=== PATIENT | male | born 1995 | race Caucasian/White ===

== ENCOUNTER 2024-09-28 13:44 | Emergency (ER) | payer OTHER, SELFPAY ==
[2024-09-28 13:56] VITALS: BP 149/82
[2024-09-28 14:22] VITALS: BP 131/92
--- NOTE | 2024-09-28 15:07 | ED.GENMED ---
History of Present Illness
General
Chief Complaint: Rabies
Source: patient
Exam Limitations: none
Time Seen by Provider: 09/28/24 14:54
Nursing documentation reviewed up to this point in time: agreed with
History of Present Illness
History of Present Illness:
Patient found a bat in his bedroom this AM when he woke. No visible bite carmen. He cam [facility] for rabies booster. 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
Past History
Past History
ED Past Medical History: None
Review of Systems
Review of Systems
Allergies reviewed?: Yes
All Other Systems: ROS reviewed and negative except as documented in HPI and ROS
Constitutional: Reports no symptoms
EENT: Reports no symptoms
Respiratory: Reports no symptoms
Cardiac: Reports no symptoms
ABD/GI: Reports no symptoms
: Reports no symptoms
Musculoskeletal: Reports no symptoms
Skin: Reports no symptoms
Neurological: Reports no symptoms
Psychiatric: Reports no symptoms
Phy Exam
General Physical Exam
General Presentation: well appearing and no apparent distress
General age: appears stated age
General Skin: warm and dry
General Habitus: normal
General Mental: alert
Musculoskeletal Exam
Musculoskeletal Exam: full ROM
Skin Exam
Skin Exam: normal color, warm/dry and no rash
Psychiatric Exam
Psychiatric Exam: normal mood/affect
Course
Orders/Labs/Results
Orders:
Orders
09/28/24 15:02
Rabies Vaccine (Pcec)/Pf [Rabavert Rabies Vacc W-Diluent] 2.5 unit IM .ONCE ONE
Vital Signs
Initial and Last Documented VS:
Initial Vital Signs
Temp Pulse Resp BP Pulse Ox
97.6 F 88 15 149/82 98
09/28/24 13:56 09/28/24 13:56 09/28/24 13:56 09/28/24 13:56 09/28/24 13:56
Last Documented Vital Signs
Temp Pulse Resp BP Pulse Ox
97.6 F 85 16 131/92 98
09/28/24 13:56 09/28/24 14:22 09/28/24 14:22 09/28/24 14:22 09/28/24 14:22
*Critical Care Note
Total Time (30-74mins, 75-104mins- exclusive of procedures): Not Applicable
ED Attending Note
-
Portions of this chart may have been created with voice recognition software.� Occasional wrong word or��sound alike� substitutions may have occurred due to the inherent limitations of voice recognition software.
Discharge Plan
Departure
Patient Disposition: Home (Routine Discharge)
Date of Disposition: 09/28/24
Time of Disposition: 15:04
Patient with high blood pressure during this ER visit?: No
Condition: Good
Covid-19: Not Applicable
Discharge Problem:
Need for post exposure prophylaxis for rabies
Instructions: Rabies Vaccine
Prescriptions:
New
RabAvert (PF) 2.5 unit Suspension For Reconstitution
1 ml IM . DIRECTED Qty: 1 0RF
Rx Instructions:
See Rabies Vaccine Post Exposure Prophylaxis Instruction Sheet for Dosing Instructions
No Action
levofloxacin 500 MG tablet
500 mg PO DAILY Qty: 10 0RF
Referrals:
Roshan Villareal MD [Family Provider, Internal Medicine]
Stand Alone Forms: Rabies Vaccine Post Exp Dosing
Activity Restrictions/Additional Instructions:
Follow up at the infusion center on 10/06 for 2nd booster.
Interventions
Interventions:
*Risk Screen - Suicide Last Done: 09/28/24 14:20
*General Assessment Last Done: 09/28/24 14:20
*Neglect/Abuse Screening Last Done: 09/28/24 13:56
*ED- Fall Risk Assessment Last Done: 09/28/24 14:20
*ED COVID-19 Vaccine History Last Done: 09/28/24 14:20
Discharge Date and Time
Print Language: MONGOLIAN
[2024-09-28] MEDS: RABAVERT RABIES VACC W-DILUENT 2.5 UNIT IM (15:51)
== END 2024-09-28 16:28 | disposition home or self-care (01) ==
LOC: EMR 13:44
PROVIDERS: EMERGENCY PHYSICIAN Emergency Medicine; FAMILY PHYSICIAN Internal Medicine
DX: Z20.3 Contact with and (suspected) exposure to rabies (principal); Z23 Encounter for immunization
CPT/HCPCS: 99282; 90471; 90675

== ENCOUNTER 2024-10-01 10:46 | Outpatient (RCR) | payer OTHER, SELFPAY ==
[2024-10-01 10:50] VITALS: BP 153/88
[2024-10-01] MEDS: RABAVERT RABIES VACC W-DILUENT 2.5 UNIT IM (11:03)
== END 2024-10-02 08:49 | disposition home or self-care (01) ==
LOC: OID 10:46
PROVIDERS: ATTENDING PHYSICIAN Emergency Medicine; FAMILY PHYSICIAN Internal Medicine
DX: Z20.3 Contact with and (suspected) exposure to rabies (principal); Z23 Encounter for immunization
CPT/HCPCS: 90471; 90675

== ENCOUNTER 2024-12-19 23:32 | Emergency (ER) | payer OTHER, SELFPAY ==
[2024-12-19 23:54] VITALS: BP 134/94
[2024-12-20 00:38] LABS: Hematocrit 39.0 % (39.0-52.0); Hemoglobin 13.7 g/dL (13.0-18.0); Mean Corp Hgb Conc. 35.1 g/dL (33.0-37.0); Mean Corpuscular Volume 84.1 fL (80.0-94.0); Nucleated Red Blood Cells % 0 % (-); Platelet Count 285 10^3/uL (130-400); Red Cell Dist. Width 12.5 % (11.5-14.5)
[2024-12-20 00:41] LABS: ALT (SGPT) 23 U/L (0-50); AST (SGOT) 19 U/L (17-59); Albumin 4.6 g/dl (3.5-5.0); Alkaline Phosphatase 39 U/L (38-126); Blood Urea Nitrogen 19 mg/dl (9-20); Calcium 9.5 mg/dl (8.4-10.2); Carbon Dioxide 23 mmol/L (22-30); Chloride 107 mmol/L (98-107); Glucose 147 mg/dl (70-99); Potassium 3.9 mmol/L (3.5-5.1); Sodium 138 mmol/L (135-145); Total Protein 7.0 g/dl (6.3-8.2); eGFR > 60.00
[2024-12-20 00:51] LABS: Troponin I < 0.012 ng/ml
--- NOTE | 2024-12-20 01:08 | ED.GENMED ---
History of Present Illness
General
Chief Complaint: Dizziness
Time Seen by Provider: 12/20/24 00:57
History of Present Illness
History of Present Illness:
29-year-old male with history of asthma presents to the emergency department for evaluation of an acute onset of heart palpitations associated with lightheadedness, anxiety, and left arm tingling that occurred at 7 PM while playing videogames. He
denies chest pain or shortness of breath in association with the symptoms. [place] that it might be gastrointestinal and he took Tums without relief. He currently feels well and states the symptoms resolved prior to coming to the emergency
department. Denies stimulant drug use or precocious coronary disease in the family. None smoker.
Past History
Past History
ED Past Medical History: None
Review of Systems
Review of Systems
Allergies reviewed?: Yes
All Other Systems: ROS reviewed and negative except as documented in HPI and ROS
Phy Exam
Physical Exam
Physical Exam:
GEN: Well appearing, NAD, WDWN
HEENT: Oral mucosa moist, no scleral icterus
Cardiac: Regular rate and rhythm, no murmur
Lung: No respiratory distress, no tachypnea murmurs, lungs clear to auscultation bilat
MSK: No gross deformity or injuries
Skin: Good color, no pallor or jaundice, no rashes
Neuro: AO x3, moves all extremities freely
Psych: Calm, cooperative
Course
Orders/Labs/Results
Orders:
Orders
12/19/24 23:56
Electrocardiogram (*1) Urgent
Reason for Study: Chest Pain
EKG- Treatment ONCE
Complete Blood Count/With Diff Urgent
Comprehensive Metabolic Panel Urgent
Troponin I Urgent
Abnormal Lab Results
12/20/24
00:09
RBC 4.64 L 10^6/uL
(4.70-6.10)
Abs Immat Gran (auto) 0.1 H 10^3/uL
(0-0.05)
Absolute Monos (auto) 0.9 H 10^3/uL
(0.1-0.6)
Immature Gran % 0.6 H %
(0-0.5)
Glucose 147 H mg/dl
(70-99)
12/20/24 00:09
12/20/24 00:09
Vital Signs
Initial and Last Documented VS:
Initial Vital Signs
Temp Pulse Resp BP Pulse Ox
98.8 F 97 16 134/94 97
12/19/24 23:54 12/19/24 23:54 12/19/24 23:54 12/19/24 23:54 12/19/24 23:54
Last Documented Vital Signs
Temp Pulse Resp BP Pulse Ox
98.8 F 86 19 127/74 98
12/19/24 23:54 12/20/24 01:15 12/20/24 01:15 12/20/24 01:15 12/20/24 01:12
MDM/Problems Addressed
MDM/Problems Addressed:
This certainly could have been a transient cardiac dysrhythmia however unable to prove at this juncture given that the patient is asymptomatic here. Clinically well at this time, labs are reassuring, negative troponin noted. He is asymptomatic in
the ED thus suitable for outpatient management, discussed home observation
Comment
Comment:
EKG independently interpreted by me shows normal sinus rhythm with no ST changes concerning for ischemia
*Pulse Oximetry
SaO2: 98
Oxygen Mode of Delivery: Room air
Patient hypoxic: no
*Critical Care Note
Total Time (30-74mins, 75-104mins- exclusive of procedures): Not Applicable
ED Attending Note
-
Portions of this chart may have been created with voice recognition software.� Occasional wrong word or��sound alike� substitutions may have occurred due to the inherent limitations of voice recognition software.
Discharge Plan
Departure
Patient Disposition: Home (Routine Discharge)
Date of Disposition: 12/20/24
Time of Disposition: 01:11
Patient with high blood pressure during this ER visit?: No
Discharge Problem:
Heart palpitations
Instructions: Palpitations - ED (DC)
Prescriptions:
No Action
RabAvert (PF) 2.5 unit Suspension For Reconstitution
1 ml IM . DIRECTED Qty: 1 0RF
Rx Instructions:
See Rabies Vaccine Post Exposure Prophylaxis Instruction Sheet for Dosing Instructions
fexofenadine [Rafaela] 180 mg Tablet
180 mg PO DAILY PRN (Reason: allergies)
Referrals:
Roshan Villareal MD [Family Provider, Internal Medicine]
Activity Restrictions/Additional Instructions:
If symptoms recur, attempt to measure your pulse at the wrist as this will help to determine if it is truly a heart arrhythmia or an anxiety related situation
Avoid excessive stimulant use such as caffeine or nicotine
Interventions
Interventions:
*Risk Screen - Suicide Last Done: 12/19/24 23:54
*General Assessment Last Done: 12/19/24 23:54
*Neglect/Abuse Screening Last Done: 12/19/24 23:54
*ED- Fall Risk Assessment Last Done: 12/20/24 01:23
*ED COVID-19 Vaccine History Last Done: 12/20/24 01:23
*Nursing Disposition Last Done: 12/20/24 01:24
ED- Neurological Assessment Last Done: 12/20/24 01:23
Discharge Date and Time
Discharge Date/Time: 12/20/24 01:24
Print Language: HAITIAN
[2024-12-20 01:15] VITALS: BP 127/74
== END 2024-12-20 01:24 | disposition home or self-care (01) ==
LOC: EMR 23:32
PROVIDERS: Emergency Medicine; EMERGENCY PHYSICIAN Emergency Medicine; FAMILY PHYSICIAN Internal Medicine
DX: R00.2 Palpitations (principal); F41.9 Anxiety disorder, unspecified; J45.909 Unspecified asthma, uncomplicated
CPT/HCPCS: 99284; 80053; 84484; 85025; 93005